=== PATIENT | male | born 1990 | race Caucasian/White ===

== ENCOUNTER 2022-07-30 23:24 | Emergency (ER) | payer OTHER ==
[~2022-07-30] VITALS: Ht 170.2 cm; Wt 79.0 kg
[2022-07-30 23:26] VITALS: BP 162/80
== END 2022-07-31 00:22 ==
LOC: ER 23:44
DX: H57.89 Other specified disorders of eye and adnexa (principal); J45.909 Unspecified asthma, uncomplicated
CPT/HCPCS: 99283